=== PATIENT | male | born 1955 | race African-American/Black ===

== ENCOUNTER 2017-02-04 08:00 | Inpatient (IN) | payer SELFPAY ==
[2017-02-04 08:05] VITALS: BMI 22.7
--- NOTE | 2017-02-04 08:27 | DR.GENAD ---
HPI - PCP Primary Care Physician: nfd - Complaint/Symptoms Chief Complaint Doctors Comments: He admits to a history of two pack per day smoking but quit two weeks ago. He denies fever, vomiting or diarrhea. He used a friends inhaler earlier today due to shortness of breath. Chief Complaint:: patient stated he has been very week for 2 weeks and has been coughing up blood. patient stated he hasnt been to a doctor cause he donrt have time or the money - Source History Provided: Patient - Mode of Arrival Mode of Arrival: Ambulatory - Timing Onset of Chief Complaint: 01/21/17 PMH - PMH Past Medical History: No Past Surgical History: No - Family History History of Family Medical Conditions: No - Social History Does patient currently use any type of tobacco product: Yes Have you used tobacco products in the last 12 months: Yes Type of Tobacco Use: None Does any household member use tobacco: No Alcohol Use: None Do you use any recreational Drugs:: No Lives With: Family Lives Where: Home - infectious screening In the last 2 months have you had wt loss of >10#?: NO Have you had fever, night sweats or hemotysis?: No Have you traveled outside the country in the last 6 months?: No Isolation: Standard ROS - Review of Systems Eyes: No Symptoms Reported ENTM: No Symptoms Reported Respiratoy: Short of Breath Cardiovascular: No Symptoms Reported Gastrointestinal/Abdominal: No Symptoms Reported Genitourinary: No Symptoms Reported Neurological: No Symptoms Reported Musculoskeletal: No Symptoms Reported Integumentary: No Symptoms Reported Hematologic/Lymphatic: No Symptoms Reported Endocrine: No Symptoms Reported Psychiatric: No Symptoms Reported All Other Systems: Reviewed and Negative PE - Vital Signs Vitals: Temperature 99.9 F Pulse Rate [Left Brachial] 112 Pulse Rate 120 Respiratory Rate 18 Blood Pressure [Left Arm] 142/102 Blood Pressure 142/105 O2 Sat by Pulse Oximetry 98 - General Limitations: No Limitations General Appearance: Alert, In No Apparent Distress - Head Head Exam: Normal Inspection, Atraumatic - Eyes Eye exam: Normal Appearance, PERRL, EOMI - ENT ENT Exam: Normal Exam, Normal Oropharynx External Ear Exam: Normal External Inspection TM/Canal Exam: Bilateral Normal Nose Exam: Normal Nose Exam Mouth Exam: Normal Inspection Throat Exam: Normal Inspection - Neck Neck Exam: Normal Inspection - Chest Chest Inspection: Normal Inspection - Respiratory Respiratory Exam: Normal Lung Sounds Bilat Respiratory Exam: Bilateral Clear to Auscultation - Cardiovascular Cardiovascular Exam: Tachycardia - Abdominal Exam Abdominal Exam: Normal Inspection Abdominal Tenderness: negative: RUQ, RLQ, LUQ, LLQ, Epigastrium, Suprapubic, Diffuse, Mild, Moderate, Severe, Other - Extremities Extremities Exam: Normal Inspection, Full ROM - Back Back Exam: Normal Inspection - Neurologic Neurological Exam: Alert, Oriented X3, CN II-XII Intact - Psychiatric Psychiatric Exam: Normal Affect - Skin Skin Exam: Warm, Dry Course - Reevaluation 1st: Improved - Consultation Called: 09:40 ROR - Labs Reviewed Laboratory Results Reviewed?: Yes (UA: Nitrite +,Leukocytes +,Ketones 4+,Prot 3+ , 4+urobilinogen) Result Diagrams: 02/04/17 08:45 02/04/17 08:45 Laboratory: WBC 12.1 X10^3/uL (3.6-10.0) H 02/04/17 08:45 RBC 4.29 X10^6/uL (4.7-6.0) L 02/04/17 08:45 Hgb 13.2 g/dL (13.5-18.0) L 02/04/17 08:45 Hct 40.8 % (42.0-54.0) L 02/04/17 08:45 MCV 95.1 fL (80.0-100.0) 02/04/17 08:45 MCH 30.8 pg (27.0-34.0) 02/04/17 08:45 MCHC 32.3 g/dL (33.0-35.0) L 02/04/17 08:45 RDW 14.7 % (11.6-16.5) 02/04/17 08:45 Plt Count 286 X10^3/uL (150.0-450.0) 02/04/17 08:45 MPV 9.2 fL (7.4-11.0) 02/04/17 08:45 Neut % 71.8 % (42.0-75.0) 02/04/17 08:45 Lymph % 17.2 % (21.0-51.0) L 02/04/17 08:45 [place] % 9.8 % (0.0-13.0) 02/04/17 08:45 Eos % 0.6 % (0.9-2.9) L 02/04/17 08:45 Baso % 0.6 % (0.2-1.0) 02/04/17 08:45 Neut # 8.7 x10^3/uL (2.2-4.8) H 02/04/17 08:45 Lymph # 2.1 X10^3/uL (1.3-2.9) 02/04/17 08:45 [place] # 1.2 x10^3/uL (0.3-0.8) H 02/04/17 08:45 Eos # 0.1 x10^3/uL (0.0-0.2) 02/04/17 08:45 Baso # 0.1 X10^3/uL (0.0-0.1) 02/04/17 08:45 Absolute Nucleated RBC 0.1 /100WBC 02/04/17 08:45 INR Target Range - 02/04/17 08:45 INR 1.25 (0.8-1.3) 02/04/17 08:45 Sodium 143 mmol/L (136-145) 02/04/17 08:45 Corrected Sodium 143 mmol/L (136-145) 02/04/17 08:45 Potassium 3.5 mmol/L (3.5-5.1) 02/04/17 08:45 Chloride 105 mmol/L (98-107) 02/04/17 08:45 Carbon Dioxide 23.9 mmol/L (21-32) 02/04/17 08:45 BUN 32 mg/dL (7-18) H 02/04/17 08:45 Creatinine 1.19 mg/dL (0.70-1.30) 02/04/17 08:45 Est GFR (MDRD) Af Amer > 60 (>60) 02/04/17 08:45 Est GFR (MDRD) Non-Af > 60 (>60) 02/04/17 08:45 Glucose 119 mg/dL (65-99) H 02/04/17 08:45 Calcium 9.2 mg/dL (8.5-10.1) 02/04/17 08:45 Corrected Calcium 10.1 mg/dL (8.5-10.1) 02/04/17 08:45 Total Bilirubin 1.50 mg/dL (0.2-1.0) H 02/04/17 08:45 AST 39 Units/L (15-37) H 02/04/17 08:45 ALT 37 Units/L (12-78) 02/04/17 08:45 Alkaline Phosphatase 62 Units/L (46-116) 02/04/17 08:45 C-Reactive Protein 158.50 mg/L (0-3.0) H 02/04/17 08:45 Total Protein 8.1 g/dL (6.4-8.2) 02/04/17 08:45 Albumin 2.9 g/dL (3.4-5.0) L 02/04/17 08:45 Globulin 5.2 g/dL (2.5-4.5) H 02/04/17 08:45 Albumin/Globulin Ratio 0.6 Ratio (1.1-2.1) L 02/04/17 08:45 Specimen Type Clean catch urine 02/04/17 08:46 Urine Color Dark yellow (YELLOW) 02/04/17 08:46 Urine Appearance Clear (CLEAR) 02/04/17 08:46 Urine pH 5.0 (5.0 - 8.0) 02/04/17 08:46 Ur Specific [place] 1.030 (1.000-1.030) 02/04/17 08:46 Urine Protein 3+ (NEGATIVE) 02/04/17 08:46 Urine Glucose (UA) Negative (NEGATIVE) 02/04/17 08:46 Urine Ketones 4+ (NEGATIVE) 02/04/17 08:46 Urine Occult Blood 4+ (NEGATIVE) 02/04/17 08:46 Urine Nitrite Positive (NEGATIVE) 02/04/17 08:46 Urine Bilirubin 2+ (NEGATIVE) 02/04/17 08:46 Urine Urobilinogen 4+ (NORMAL) 02/04/17 08:46 Ur Leukocyte Esterase 1+ (NEGATIVE) 02/04/17 08:46 Urine RBC 5-6 /HPF (NEGATIVE) 02/04/17 08:46 Urine WBC 2-4 /HPF (NEGATIVE) 02/04/17 08:46 Ur Squamous Epith Cells Few /HPF (NEGATIVE) 02/04/17 08:46 Amorphous Sediment 1+ /HPF (NEGATIVE) 02/04/17 08:46 Urine Bacteria Trace /HPF (NEGATIVE) 02/04/17 08:46 Urine Mucus Few /HPF (NEGATIVE) 02/04/17 08:46 Ur Culture Indicated? Yes/culture set up 02/04/17 08:46 - XRAY XRAY Interpreted by: Radiologist (Chest: Diffuse perihilar infiltrates on the right with mild right upper lobe volume loss and mild perihilar infiltrate on the left. Findings are most consistent with bilateral pneumonia.) - Diagnosis Discharge Problem: Dehydration, Prerenal azotemia, Hypoalbuminemia Pneumonia Qualifiers: Pneumonia type: due to unspecified organism Laterality: bilateral Lung location : lower lobe of lung Qualified Code(s): J18.9 - Pneumonia, unspecified organism - Discharge Plan Condition: Stable - Follow ups/Referrals Follow ups/Referrals: NFD,None [Primary Care Provider] - 3 days - Instructions
[2017-02-04] MEDS ORDERED: NS 1000 ML 1,000 ML IV ONE (08:29)
[2017-02-04] MEDS ORDERED: DUONEB 0.5 MG/3 MG NEB ONE (08:30)
[2017-02-04] MEDS ORDERED: NS 1000 ML 1,000 ML ONE ×2 (08:33→10:49)
[2017-02-04 09:01] LABS: BASOPHILS # (AUTO) 0.1 X10^3/uL (0.0-0.1); BASOPHILS % (AUTO) 0.6 % (0.2-1.0); EOSINOPHILS # (AUTO) 0.1 x10^3/uL (0.0-0.2); EOSINOPHILS % (AUTO) 0.6 % (0.9-2.9); HEMATOCRIT 40.8 % (42.0-54.0); HEMOGLOBIN 13.2 g/dL (13.5-18.0); LYMPHOCYTES # (AUTO) 2.1 X10^3/uL (1.3-2.9); LYMPHOCYTES % (AUTO) 17.2 % (21.0-51.0); MEAN CORPUSCULAR HEMOGLOBIN 30.8 pg (27.0-34.0); MEAN CORPUSCULAR HGB CONC 32.3 g/dL (33.0-35.0); MEAN CORPUSCULAR VOLUME 95.1 fL (80.0-100.0); MEAN PLATELET VOLUME 9.2 fL (7.4-11.0); MONOCYTES # (AUTO) 1.2 x10^3/uL (0.3-0.8); MONOCYTES % (AUTO) 9.8 % (0.0-13.0); NEUTROPHILS # (AUTO) 8.7 x10^3/uL (2.2-4.8); NEUTROPHILS % (AUTO) 71.8 % (42.0-75.0); PLATELET COUNT 286 X10^3/uL (150.0-450.0); RED BLOOD COUNT 4.29 X10^6/uL (4.7-6.0); RED CELL DISTRIBUTION WIDTH 14.7 % (11.6-16.5); WHITE BLOOD COUNT 12.1 X10^3/uL (3.6-10.0)
[2017-02-04 09:01] LABS: BILIRUBIN,URINE 2+ (NEGATIVE); BLOOD/HEMOGLOBIN,URINE 4+ (NEGATIVE); GLUCOSE, URINE NEGATIVE (NEGATIVE); KETONES,URINE 4+ (NEGATIVE); LEUKOCYTE ESTERASE ,URINE 1+ (NEGATIVE); NITRITES,URINE POSITIVE (NEGATIVE); PROTEIN,URINE 3+ (NEGATIVE); UROBILINOGEN,URINE 4+ (NORMAL)
[2017-02-04 09:10] LABS: APPEARANCE,URINE CLEAR (CLEAR); BACTERIA,URINE TRACE /HPF (NEGATIVE); COLOR,URINE DARK YELLOW (YELLOW); SQUAMOUS EPITHELIAL CELL,UR FEW /HPF (NEGATIVE)
[2017-02-04 09:11] LABS: ALANINE AMINOTRANSFERASE 37 Units/L (12-78); ALBUMIN 2.9 g/dL (3.4-5.0); ALKALINE PHOSPHATASE 62 Units/L (46-116); ASPARTATE AMINO TRANSFERASE 39 Units/L (15-37); BLOOD UREA NITROGEN 32 mg/dL (7-18); CALCIUM 9.2 mg/dL (8.5-10.1); CARBON DIOXIDE 23.9 mmol/L (21-32); CHLORIDE 105 mmol/L (98-107); COR CA(FOR HYPOALB) 10.1 mg/dL (8.5-10.1); COR NA(FOR HYPERGLY) 143 mmol/L (136-145); CREATININE 1.19 mg/dL (0.70-1.30); GLUCOSE 119 mg/dL (65-99); SODIUM 143 mmol/L (136-145); TOTAL PROTEIN 8.1 g/dL (6.4-8.2); eGFR BLACK RACES > 60 (>60); eGFR NON BLACK RACES > 60 (>60)
[2017-02-04 09:11] LABS: AMORPHOUS SEDIMENT,UR 1+ /HPF (NEGATIVE); MUCUS,URINE FEW /HPF (NEGATIVE)
--- NOTE | 2017-02-04 09:36 | RAD ---
HISTORY: Cough, hemoptysis Study: PA and lateral chest Comparison: None Findings: The heart is within normal limits in size. There is diffuse perihilar infiltrate throughout the right lung. It is associated with mild right upper lobe volume loss as evidenced by upward bowing of the m inor fissure. There is minimal left perihilar infiltrate present. These findings are most consistent with pneumonia and should be followed until complete resolution in order to exclude underlying neopla sm. No pleural are identified. The bony thorax is unremarkable. IMPRESSION: Diffuse perihilar infiltrates on the right with mild right upper lobe volume loss and mild perihilar infiltrate on the left. Findings are most consistent with bilateral pneumonia. Follow up until comple te resolution is recommended. Reported By:
[2017-02-04] MEDS ORDERED: LEVAQUIN PREMIX IV 750 MG 750 MG/150 ML BAG IV SCH (10:00)
[2017-02-04] MEDS ORDERED: TUSSIONEX PENNKINETIC SUSP PO PRN (11:16)
[2017-02-04] MEDS ORDERED: NS 1/2 1000 ML IV 1,000 ML IV ONE (11:41)
[2017-02-04] MEDS ORDERED: NS 1/2 1000 ML IV 1,000 ML IV SCH (12:00)
[2017-02-04] MEDS: XOPENEX 1.25 MG/3 ML NEBULE NEB SCH ×2 (12:13→16:13)
[2017-02-04] MEDS: ZOSYN VIAL 3.375 GM 3.375 GM in NS 100 ML IV + SPIKE MINIBAG* 100 ML IV SCH ×2 (12:44→14:34)
[2017-02-04] MEDS ORDERED: ROBITUSSIN DM PO SCH (13:00)
[2017-02-04 16:02] VITALS: BP 126/80
[2017-02-04] MEDS ORDERED: VISTARIL PO PRN (16:47)
[2017-02-04] MEDS ORDERED: TESSALON PERLES PO ONE (16:52)
--- NOTE | 2017-02-04 17:34 | RAD ---
Chest, one view Indication: Tube placement Comparison: Radiograph from same day Findings: Tip of the endotracheal 2 appears well positioned, terminating 4 cm above the wil. Airsp kevin opacities throughout the right upper and mid lung have significantly increased since earlier toda y. Left perihilar opacities appear unchanged. Heart size is stable. No significant effusion or pneumo thorax. Impression: 1. Satisfactory ET tube placement. 2. Significant worsening right-sided airspace disease, compatible with pneumonia. Left perihilar opac ities appear unchanged. Continued follow up to complete resolution again recommended. Reported By:
== END 2017-02-04 20:05 | disposition expired | DRG 208 ==
LOC: ER 08:13 → MED/SURG 11:14
PROVIDERS: ADMIT Internal Medicine; ATTEND Internal Medicine
PROC: 0BH17EZ Insertion of Endotracheal Airway into Trachea, Via Natural or Artificial Opening (ICD-10-PCS; principal; 2017-02-04)
PROC: 5A1935Z Respiratory Ventilation, Less than 24 Consecutive Hours (ICD-10-PCS; 2017-02-04)
DX: J18.8 Other pneumonia, unspecified organism (principal); E86.0 Dehydration; R79.89 Other specified abnormal findings of blood chemistry; E88.09 Other disorders of plasma-protein metabolism, not elsewhere classified; I46.8 Cardiac arrest due to other underlying condition; N39.0 Urinary tract infection, site not specified; B96.29 Other Escherichia coli [E. coli] as the cause of diseases classified elsewhere
CPT/HCPCS: 31500; 36415; 36591; 71010; 71020; 80053; 81001; 85025; 85610; 86140; 87040; 87070; 87076; 87077; 87086; 87186; 87205; 93005; 93010; 94640; 94760; 96365; 96374; 99284; A4222; Q0177; J1956; J2543; J7620